=== PATIENT | male | born 1995 | race Hispanic/Latino ===

== ENCOUNTER 2019-04-27 12:40 | Outpatient (CLI) | payer BC ==
--- NOTE | 2019-04-27 13:00 | RAD ---
Exam: Right hand 3 views: HISTORY: Injury and swelling from trauma COMPARISON: None FINDINGS: No evidence for fracture, dislocation, or other significant acute osseous abnormality. IMPRESSION: No significant acute process.
== END 2019-04-27 12:41 | disposition home or self-care (01) ==
LOC: SCSRAD 12:40
DX: M79.641 Pain in right hand (principal)